=== PATIENT | female | born 1975 | race Caucasian/White ===

== ENCOUNTER 2016-07-09 17:24 | Inpatient (IN) | payer MEDICARE, MEDICAID ==
[~2016-07-09] VITALS: Ht 162.6 cm; Wt 49.7 kg
[~2016-07-09 17:24] MED LIST: ASCO250T13 PO; CHOL10006 PO; CYCL-181 PO; DIPH25CA39 PO; DOCU-94 PO; DOXE25CA2 PO; ENA10T PO; ESZO3TAB53 PO; FERR27TA2 PO; GABA300C PO; HYDR2TAB29 PO; INSUINJ37 SC; INSUINJ37 SUBCUT; LEVO25TA6 PO; LORA1TAB12 PO; MAGN400T7 PO; MULTTAB61 PO; MYCO250C4 PO; NALO1TAB PO; ONDA4TAB5 PO; OXY10CRT PO; OXYC-629 PO; PANT40TA2 PO; PRE1T PO; SENN8.6C PO; SPIR25TA89 PO; SULF-92 PO; SULF800T7 PO; TACR1CAP4 PO; TRAZ100T2 PO; [UNRECOGNIZED DRUG - CODE] PO
[2016-07-09 19:22] LABS: Basophils # (auto) 0 uL; DEFINITIVE VIEW TRANSMISSION; Eosinophils # (auto) 0 uL; Hematocrit 25.1 % (36.0-46.0); Hemoglobin 8.3 g/dL (12.2-16.2); Lymphocytes # (auto) 0.1 uL; Lymphocytes % (auto) 3.4 % (10.0-50.0); Mean Corpuscular Hemoglobin 28.5 pg (28.0-32.0); Mean Corpuscular Hgb Conc. 33.2 g/dL (32.0-36.0); Mean Corpuscular Volume 85.8 fL (80.0-100.0); Mean Platelet Volume 8.5 fL (7.4-10.4); Monocytes # (auto) 0.2 uL; Neutrophils # (auto) 3.7 uL; Neutrophils % (auto) 92.6 % (37.0-80.0); Platelet Count (auto) 91 10^3/uL (140-450); Red Cell Distribution Width 13.9 % (11.6-16.0)
[2016-07-09 19:47] LABS: Albumin 2.8 g/dL (3.4-5.0); BUN/Creatinine Ratio 22.4; Bilirubin, Total 1.2 mg/dL (0.2-1.0); Calcium 8.4 mg/dL (8.5-10.1); Potassium 5.4 mmol/L (3.5-5.1)
[2016-07-10] VITALS (7 sets, daily range): BP systolic 132–167; BP diastolic 78–90
[2016-07-10] MEDS ORDERED: FUROSEMIDE 40 MG/4 ML VIAL IV ONE
[2016-07-10] MEDS ORDERED: CEFOTAXIME SODIUM 2 GM in D5W 5% 100 ML IV ONE ×2
[2016-07-10] MEDS ORDERED: InsuLIN REG 1unit/0.01ml Soln (100units/ml) IV ONE (00:45)
[2016-07-10] MEDS ORDERED: SODIUM CHLORIDE 0.9% 500 ML IV ONE ×2 (00:45→02:15)
[2016-07-10] MEDS ORDERED: DEXTROSE (50%) 50ML SYRG IV PRN (01:45)
[2016-07-10] MEDS: ACCU-CHEK COMFORT CURVE STRIP VI SCH ×5 (03:45→20:33)
[2016-07-10] MEDS: InsuLIN REG 1unit/0.01ml Soln (100units/ml) SC SCH ×5 (03:52→20:36)
[2016-07-10] MEDS: ONDANSETRON HCL 4 MG/2 ML VIAL IV PRN ×2 (04:53→10:37)
[2016-07-10] MEDS ORDERED: PATIENTS OWN MEDICATION (meropenem 1 GM) IV SCH (06:00)
[2016-07-10] MEDS: LEVOTHYROXINE SODIUM 25 MCG TAB PO SCH (06:02)
[2016-07-10] MEDS: FERROUS SULFATE 325 MG TAB PO SCH ×2 (08:19→18:22)
[2016-07-10] MEDS: PANTOPRAZOLE SODIUM 40 MG/10 ML VIAL IV SCH (08:20)
[2016-07-10] MEDS: FUROSEMIDE 40 MG TAB PO SCH (08:20)
[2016-07-10] MEDS: oxyCODONE ER 10 MG TAB PO SCH ×2 (08:20→20:32)
[2016-07-10] MEDS: SPIRONOLACTONE 25 MG TAB PO SCH (08:20)
[2016-07-10] MEDS: predniSONE 5 MG TAB PO SCH (08:20)
[2016-07-10] MEDS: ENOXAPARIN SOD 30 MG/0.3 ML SYRINGE SC SCH (08:21)
[2016-07-10 08:34] LABS: INR 1.31 (0.9-1.15); Prothrombin Time 14.3 sec (9.37-12.3)
[2016-07-10] MEDS ORDERED: MEROPENEM IV SCH (10:00)
[2016-07-10] MEDS ORDERED: SODIUM CHLORIDE IV SCH (10:00)
[2016-07-10] MEDS: MYCOPHENOLATE 500 MG TAB PO SCH ×2 (10:32→20:32)
[2016-07-10] MEDS: TACROLIMUS 1 MG CAP PO SCH ×2 (10:32→20:33)
[2016-07-10] MEDS: MORPHINE SULF INJ 2 MG/ML SYRINGE 1ML IV PRN (10:37)
[2016-07-10] MEDS ORDERED: ESZO1TAB12 PO (12:43)
[2016-07-10] MEDS ORDERED: MEDR10TA9 (12:43)
[2016-07-10 16:41] LABS: Urine RBC None Seen /hpf (0 - 4)
[2016-07-10 17:04] LABS: Urine Bilirubin Negative (Negative); Urine Blood Negative /uL (Negative); Urine Color Yellow (Yellow); Urine Ketone TRACE (Negative); Urine Mucus FEW (None Seen); Urine Nitrite Negative (Negative); Urine Urobilinogen Normal (Negative)
[2016-07-10 17:05] LABS: Urine Glucose 1+ mg/dL (Normal)
[2016-07-10] MEDS: LACTULOSE 20Gm/30ML SOLN PO SCH (18:22)
[2016-07-11] MEDS: MORPHINE SULF INJ 2 MG/ML SYRINGE 1ML IV PRN ×5 (00:35→21:58)
[2016-07-11] MEDS: LACTULOSE 20Gm/30ML SOLN PO SCH ×4 (01:58→18:19)
[2016-07-11] MEDS: ACCU-CHEK COMFORT CURVE STRIP VI SCH ×6 (01:59→20:14)
[2016-07-11] MEDS: InsuLIN REG 1unit/0.01ml Soln (100units/ml) SC SCH ×6 (02:00→20:14)
[2016-07-11 04:48] VITALS: BP 146/74
[2016-07-11 06:07] LABS: Basophils # (auto) 0 uL; Basophils % (auto) 0.2 % (0.0-2.0); Eosinophils # (auto) 0 uL; Hematocrit 25.9 % (36.0-46.0); Hemoglobin 8.7 g/dL (12.2-16.2); Lymphocytes # (auto) 0.3 uL; Lymphocytes % (auto) 6.6 % (10.0-50.0); Mean Corpuscular Hemoglobin 28.5 pg (28.0-32.0); Mean Corpuscular Hgb Conc. 33.7 g/dL (32.0-36.0); Mean Corpuscular Volume 84.6 fL (80.0-100.0); Mean Platelet Volume 8.1 fL (7.4-10.4); Monocytes # (auto) 0.2 uL; Neutrophils # (auto) 3.5 uL; Neutrophils % (auto) 88.2 % (37.0-80.0); Platelet Count (auto) 124 10^3/uL (140-450); Red Cell Distribution Width 13.9 % (11.6-16.0)
[2016-07-11 06:24] LABS: Albumin 2.6 g/dL (3.4-5.0); BUN/Creatinine Ratio 25.2; Bilirubin, Total 0.8 mg/dL (0.2-1.0); Calcium 7.8 mg/dL (8.5-10.1); Potassium 3.7 mmol/L (3.5-5.1); Total Protein 5.7 g/dL (6.4-8.2)
[2016-07-11] MEDS: LEVOTHYROXINE SODIUM 25 MCG TAB PO SCH (06:35)
[2016-07-11 09:21] VITALS: BP 144/66
[2016-07-11] MEDS: FERROUS SULFATE 325 MG TAB PO SCH ×2 (09:25→18:19)
[2016-07-11] MEDS: PANTOPRAZOLE SODIUM 40 MG/10 ML VIAL IV SCH (11:07)
[2016-07-11] MEDS: MYCOPHENOLATE 500 MG TAB PO SCH ×2 (11:08→21:46)
[2016-07-11] MEDS: predniSONE 5 MG TAB PO SCH (11:08)
[2016-07-11] MEDS: oxyCODONE ER 10 MG TAB PO SCH ×2 (11:08→21:47)
[2016-07-11] MEDS: FUROSEMIDE 40 MG TAB PO SCH (11:08)
[2016-07-11] MEDS: TACROLIMUS 1 MG CAP PO SCH ×2 (11:08→21:48)
[2016-07-11] MEDS: SPIRONOLACTONE 25 MG TAB PO SCH (11:08)
[2016-07-11] MEDS: ENOXAPARIN SOD 30 MG/0.3 ML SYRINGE SC SCH (11:09)
[2016-07-11 14:41] VITALS: BP 162/85
[2016-07-11 17:10] VITALS: BP 141/83
[2016-07-11 20:00] VITALS: BP 149/89
[2016-07-11 21:52] VITALS: BP 149/89
[2016-07-12] VITALS (7 sets, daily range): BP systolic 137–150; BP diastolic 77–92
[2016-07-12] MEDS: LACTULOSE 20Gm/30ML SOLN PO SCH ×5 (00:37→23:36)
[2016-07-12] MEDS: ACCU-CHEK COMFORT CURVE STRIP VI SCH ×6 (00:38→21:20)
[2016-07-12] MEDS: InsuLIN REG 1unit/0.01ml Soln (100units/ml) SC SCH ×6 (00:38→21:20)
[2016-07-12] MEDS: MORPHINE SULF INJ 2 MG/ML SYRINGE 1ML IV PRN ×4 (02:34→22:41)
[2016-07-12] MEDS: LEVOTHYROXINE SODIUM 25 MCG TAB PO SCH (06:04)
[2016-07-12] MEDS: FERROUS SULFATE 325 MG TAB PO SCH ×2 (09:40→18:02)
[2016-07-12] MEDS: PANTOPRAZOLE SODIUM 40 MG/10 ML VIAL IV SCH (09:40)
[2016-07-12] MEDS: SPIRONOLACTONE 25 MG TAB PO SCH (09:40)
[2016-07-12] MEDS: FUROSEMIDE 40 MG TAB PO SCH (09:41)
[2016-07-12] MEDS: oxyCODONE ER 10 MG TAB PO SCH ×2 (09:41→21:19)
[2016-07-12] MEDS: predniSONE 5 MG TAB PO SCH (09:41)
[2016-07-12] MEDS: ENOXAPARIN SOD 30 MG/0.3 ML SYRINGE SC SCH (09:41)
[2016-07-12] MEDS: TACROLIMUS 1 MG CAP PO SCH ×2 (09:42→21:19)
[2016-07-12] MEDS: MYCOPHENOLATE 500 MG TAB PO SCH ×2 (09:42→21:19)
[2016-07-12] MEDS ORDERED: DEXTROSE (50%) 50ML SYRG IV PRN (10:15)
[2016-07-12 14:03] LABS: Albumin 3.2 g/dL (3.4-5.0); BUN/Creatinine Ratio 25.8; Bilirubin, Total 1.2 mg/dL (0.2-1.0); Calcium 8.4 mg/dL (8.5-10.1); Potassium 3.5 mmol/L (3.5-5.1); Total Protein 6.8 g/dL (6.4-8.2)
[2016-07-12] MEDS ORDERED: PATIENTS OWN MEDICATION PO SCH ×2 (22:00)
[2016-07-12] MEDS: LUNESTA 3MG TAB PO SCH (23:36)
[2016-07-13] MEDS: MORPHINE SULF INJ 2 MG/ML SYRINGE 1ML IV PRN ×4 (03:11→21:25)
[2016-07-13 05:00] VITALS: BP 134/81
[2016-07-13] MEDS: LACTULOSE 20Gm/30ML SOLN PO SCH ×4 (06:00→23:39)
[2016-07-13] MEDS: ACCU-CHEK COMFORT CURVE STRIP VI SCH ×4 (06:12→21:26)
[2016-07-13] MEDS: LEVOTHYROXINE SODIUM 25 MCG TAB PO SCH (06:13)
[2016-07-13] MEDS: InsuLIN REG 1unit/0.01ml Soln (100units/ml) SC SCH ×4 (06:13→21:27)
[2016-07-13 08:40] VITALS: BP 146/81
[2016-07-13 09:26] LABS: Basophils # (auto) 0 uL; DEFINITIVE VIEW TRANSMISSION; Eosinophils # (auto) 0 uL; Hematocrit 23.7 % (36.0-46.0); Hemoglobin 8.1 g/dL (12.2-16.2); Lymphocytes # (auto) 0.5 uL; Lymphocytes % (auto) 11.3 % (10.0-50.0); Mean Corpuscular Hgb Conc. 34.4 g/dL (32.0-36.0); Mean Corpuscular Volume 84.4 fL (80.0-100.0); Mean Platelet Volume 7.3 fL (7.4-10.4); Monocytes # (auto) 0.2 uL; Neutrophils # (auto) 3.4 uL; Neutrophils % (auto) 82.7 % (37.0-80.0); Platelet Count (auto) 100 10^3/uL (140-450); Red Cell Distribution Width 13.8 % (11.6-16.0); White Blood Cell 4.1 10^3/uL (4.4-10.8)
[2016-07-13] MEDS: SPIRONOLACTONE 25 MG TAB PO SCH (09:32)
[2016-07-13] MEDS: FUROSEMIDE 40 MG TAB PO SCH (09:34)
[2016-07-13] MEDS: PANTOPRAZOLE SODIUM 40 MG/10 ML VIAL IV SCH (09:34)
[2016-07-13] MEDS: FERROUS SULFATE 325 MG TAB PO SCH ×2 (09:34→17:14)
[2016-07-13] MEDS: predniSONE 5 MG TAB PO SCH (09:35)
[2016-07-13] MEDS: MYCOPHENOLATE 500 MG TAB PO SCH ×2 (09:36→21:26)
[2016-07-13] MEDS: oxyCODONE ER 10 MG TAB PO SCH ×2 (09:37→21:26)
[2016-07-13] MEDS: TACROLIMUS 1 MG CAP PO SCH ×2 (09:38→21:25)
[2016-07-13] MEDS: ENOXAPARIN SOD 30 MG/0.3 ML SYRINGE SC SCH (09:38)
[2016-07-13 09:48] LABS: Albumin 2.4 g/dL (3.4-5.0); BUN/Creatinine Ratio 26.1; Bilirubin, Total 0.7 mg/dL (0.2-1.0); Calcium 7.6 mg/dL (8.5-10.1); Potassium 3.2 mmol/L (3.5-5.1); Total Protein 5.1 g/dL (6.4-8.2)
[2016-07-13 13:38] VITALS: BP 144/79
[2016-07-13] MEDS ORDERED: MORPHINE SULF INJ 2 MG/ML SYRINGE 1ML IV ONE (15:45)
[2016-07-13] MEDS: Suplena 8 ounce PO SCH (18:00)
[2016-07-13 20:00] VITALS: BP 140/93
[2016-07-13] MEDS: LUNESTA 3MG TAB PO SCH (21:34)
[2016-07-13 22:28] VITALS: BP 140/93
[2016-07-14] MEDS: MORPHINE SULF INJ 2 MG/ML SYRINGE 1ML IV PRN ×2 (02:17→06:32)
[2016-07-14 05:19] VITALS: BP 142/87
[2016-07-14 05:49] LABS: Basophils # (auto) 0 uL; Eosinophils # (auto) 0 uL; Hematocrit 25.6 % (36.0-46.0); Hemoglobin 8.6 g/dL (12.2-16.2); Lymphocytes # (auto) 0.4 uL; Lymphocytes % (auto) 7.6 % (10.0-50.0); Mean Corpuscular Hemoglobin 28.2 pg (28.0-32.0); Mean Corpuscular Hgb Conc. 33.5 g/dL (32.0-36.0); Monocytes # (auto) 0.2 uL; Monocytes % (auto) 4.7 % (0.0-12.0); Neutrophils # (auto) 4.4 uL; Neutrophils % (auto) 87.7 % (37.0-80.0); Platelet Count (auto) 135 10^3/uL (140-450); Red Cell Distribution Width 13.8 % (11.6-16.0)
[2016-07-14] MEDS: LACTULOSE 20Gm/30ML SOLN PO SCH ×5 (06:00→23:48)
[2016-07-14 06:08] LABS: Albumin 2.8 g/dL (3.4-5.0); BUN/Creatinine Ratio 24.1; Bilirubin, Total 1.3 mg/dL (0.2-1.0); Calcium 7.8 mg/dL (8.5-10.1); Potassium 4.3 mmol/L (3.5-5.1); Total Protein 5.8 g/dL (6.4-8.2)
[2016-07-14] MEDS: LEVOTHYROXINE SODIUM 25 MCG TAB PO SCH (06:19)
[2016-07-14] MEDS: ACCU-CHEK COMFORT CURVE STRIP VI SCH ×4 (06:20→21:43)
[2016-07-14] MEDS: InsuLIN REG 1unit/0.01ml Soln (100units/ml) SC SCH ×3 (06:20→17:39)
[2016-07-14 06:42] LABS: Partial Thromboplastin Time 30.3 sec (22.64-33.71)
[2016-07-14 06:43] LABS: INR 1.29 (0.9-1.15); Prothrombin Time 14.1 sec (9.37-12.3)
[2016-07-14] MEDS: Suplena 8 ounce PO SCH ×2 (08:00→17:44)
[2016-07-14] MEDS: FERROUS SULFATE 325 MG TAB PO SCH ×2 (08:56→17:41)
[2016-07-14 09:00] VITALS: BP 149/89
[2016-07-14] MEDS: TACROLIMUS 1 MG CAP PO SCH ×2 (09:04→21:43)
[2016-07-14] MEDS: oxyCODONE ER 10 MG TAB PO SCH ×2 (09:04→21:46)
[2016-07-14] MEDS: SPIRONOLACTONE 25 MG TAB PO SCH (09:04)
[2016-07-14] MEDS: predniSONE 5 MG TAB PO SCH (09:04)
[2016-07-14] MEDS: MYCOPHENOLATE 500 MG TAB PO SCH ×2 (09:04→21:43)
[2016-07-14] MEDS: ENOXAPARIN SOD 30 MG/0.3 ML SYRINGE SC SCH (09:05)
[2016-07-14] MEDS: FUROSEMIDE 40 MG TAB PO SCH (09:05)
[2016-07-14] MEDS ORDERED: DEXTROSE (50%) 50ML SYRG IV PRN (09:30)
[2016-07-14] MEDS: PANTOPRAZOLE 40 MG TAB PO SCH (10:00)
[2016-07-14] MEDS ORDERED: medroxyPROGESTERone ACETATE 5 MG TAB PO ONE (12:45)
[2016-07-14 13:00] VITALS: BP 156/89
[2016-07-14 14:10] LABS: Vitamin D 25-Hydroxy 25 ng/mL (.); Vitamin D-2 25-Hydroxy <1.0 ng/mL (.)
[2016-07-14] MEDS: ONDANSETRON ODT 4 MG TAB PO PRN (15:08)
[2016-07-14] MEDS: OXYCODONE HCL 5MG TAB PO PRN ×2 (15:08→20:14)
[2016-07-14 20:00] VITALS: BP 145/83
[2016-07-14] MEDS: INSULIN DETEMIR(LEVEMIR) 1unit/0.01ml Soln (100units/ml) SC SCH (21:44)
[2016-07-14] MEDS: LUNESTA 3MG TAB PO SCH (21:46)
[2016-07-14] MEDS ORDERED: InsuLIN REG 1unit/0.01ml Soln (100units/ml) SC SCH (22:00)
[2016-07-14 22:12] VITALS: BP 145/83
[2016-07-15 05:07] VITALS: BP 149/78
[2016-07-15 06:09] LABS: Basophils # (auto) 0 uL; Basophils % (auto) 0.2 % (0.0-2.0); DEFINITIVE VIEW TRANSMISSION; Eosinophils # (auto) 0 uL; Eosinophils % (auto) 0.1 % (0.0-7.0); Hemoglobin 8.4 g/dL (12.2-16.2); Lymphocytes # (auto) 0.8 uL; Lymphocytes % (auto) 16.1 % (10.0-50.0); Mean Corpuscular Hemoglobin 28.2 pg (28.0-32.0); Mean Corpuscular Hgb Conc. 33.6 g/dL (32.0-36.0); Mean Corpuscular Volume 84.1 fL (80.0-100.0); Mean Platelet Volume 7.6 fL (7.4-10.4); Monocytes # (auto) 0.2 uL; Monocytes % (auto) 4.7 % (0.0-12.0); Neutrophils % (auto) 78.9 % (37.0-80.0); Platelet Count (auto) 130 10^3/uL (140-450); Red Cell Distribution Width 13.8 % (11.6-16.0); White Blood Cell 5.1 10^3/uL (4.4-10.8)
[2016-07-15] MEDS: InsuLIN REG 1unit/0.01ml Soln (100units/ml) SC SCH ×3 (06:15→18:00)
[2016-07-15] MEDS: INSULIN DETEMIR(LEVEMIR) 1unit/0.01ml Soln (100units/ml) SC SCH ×2 (06:16→22:42)
[2016-07-15] MEDS: ACCU-CHEK COMFORT CURVE STRIP VI SCH ×3 (06:17→18:35)
[2016-07-15] MEDS: LACTULOSE 20Gm/30ML SOLN PO SCH ×4 (06:24→23:15)
[2016-07-15] MEDS: LEVOTHYROXINE SODIUM 25 MCG TAB PO SCH (06:25)
[2016-07-15] MEDS: oxyCODONE ER 10 MG TAB PO SCH ×3 (06:25→21:55)
[2016-07-15 06:27] LABS: Albumin 2.3 g/dL (3.4-5.0); Calcium 7.7 mg/dL (8.5-10.1); Potassium 3.3 mmol/L (3.5-5.1)
[2016-07-15 06:30] LABS: BUN/Creatinine Ratio 25.3; Bilirubin, Total 0.8 mg/dL (0.2-1.0); Total Protein 5.2 g/dL (6.4-8.2)
[2016-07-15 08:00] VITALS: BP 142/83
[2016-07-15] MEDS: Suplena 8 ounce PO SCH ×2 (09:10→18:38)
[2016-07-15] MEDS: FERROUS SULFATE 325 MG TAB PO SCH ×2 (09:34→18:36)
[2016-07-15] MEDS: predniSONE 5 MG TAB PO SCH (09:35)
[2016-07-15] MEDS: SPIRONOLACTONE 25 MG TAB PO SCH (09:35)
[2016-07-15] MEDS: medroxyPROGESTERone ACETATE 5 MG TAB PO SCH (09:36)
[2016-07-15] MEDS: PANTOPRAZOLE 40 MG TAB PO SCH (09:37)
[2016-07-15] MEDS: FUROSEMIDE 40 MG TAB PO SCH (09:38)
[2016-07-15] MEDS: MYCOPHENOLATE 500 MG TAB PO SCH ×2 (09:39→21:56)
[2016-07-15] MEDS: TACROLIMUS 1 MG CAP PO SCH ×2 (09:39→21:56)
[2016-07-15] MEDS: ENOXAPARIN SOD 30 MG/0.3 ML SYRINGE SC SCH (09:40)
[2016-07-15] MEDS: OXYCODONE HCL 5MG TAB PO PRN ×3 (10:59→20:04)
[2016-07-15] MEDS: ONDANSETRON ODT 4 MG TAB PO PRN ×2 (11:00→23:08)
[2016-07-15 12:00] VITALS: BP 145/84
[2016-07-15] MEDS ORDERED: ALUM & MAG HYDROX-SIMETH LIQ(MAALOX) 30 ML PO ONE (12:45)
[2016-07-15 17:00] VITALS: BP 137/74
[2016-07-15 18:00] VITALS: BP 149/76
[2016-07-15] MEDS: LUNESTA 3MG TAB PO SCH (21:55)
[2016-07-16 04:50] VITALS: BP 131/74
[2016-07-16] MEDS: InsuLIN REG 1unit/0.01ml Soln (100units/ml) SC SCH ×6 (06:00→19:59)
[2016-07-16] MEDS: LACTULOSE 20Gm/30ML SOLN PO SCH ×3 (06:00→17:51)
[2016-07-16] MEDS: oxyCODONE ER 10 MG TAB PO SCH ×3 (06:09→21:41)
[2016-07-16] MEDS: ACCU-CHEK COMFORT CURVE STRIP VI SCH ×6 (06:09→19:59)
[2016-07-16] MEDS: LEVOTHYROXINE SODIUM 25 MCG TAB PO SCH (06:10)
[2016-07-16] MEDS: INSULIN DETEMIR(LEVEMIR) 1unit/0.01ml Soln (100units/ml) SC SCH ×2 (07:00→22:00)
[2016-07-16 08:00] VITALS: BP 121/83
[2016-07-16] MEDS ORDERED: DEXTROSE (50%) 50ML SYRG IV PRN (08:00)
[2016-07-16] MEDS: Suplena 8 ounce PO SCH ×2 (08:00→17:51)
[2016-07-16] MEDS ORDERED: DEXTROSE 10% 1,000 ML IV ONE (08:15)
[2016-07-16 08:30] VITALS: BP 121/83
[2016-07-16] MEDS: FERROUS SULFATE 325 MG TAB PO SCH ×2 (09:09→17:46)
[2016-07-16] MEDS: OXYCODONE HCL 5MG TAB PO PRN ×3 (09:09→18:51)
[2016-07-16] MEDS ORDERED: PROMETHAZINE HCL 25 MG/ML 1ML IV PRN (10:00)
[2016-07-16] MEDS ORDERED: ACCU-CHEK COMFORT CURVE STRIP VI SCH (10:00)
[2016-07-16] MEDS: medroxyPROGESTERone ACETATE 5 MG TAB PO SCH (10:10)
[2016-07-16] MEDS: predniSONE 5 MG TAB PO SCH (10:10)
[2016-07-16] MEDS: SPIRONOLACTONE 25 MG TAB PO SCH (10:11)
[2016-07-16] MEDS: FUROSEMIDE 40 MG TAB PO SCH (10:11)
[2016-07-16] MEDS: PANTOPRAZOLE 40 MG TAB PO SCH (10:11)
[2016-07-16] MEDS: ENOXAPARIN SOD 40 MG/0.4 ML SYRINGE SC SCH (10:12)
[2016-07-16 12:00] VITALS: BP 126/68
[2016-07-16] MEDS: MYCOPHENOLATE 500 MG TAB PO SCH ×2 (13:54→21:40)
[2016-07-16] MEDS: TACROLIMUS 1 MG CAP PO SCH ×2 (13:54→21:41)
[2016-07-16 17:30] VITALS: BP 119/70
[2016-07-16] MEDS: ONDANSETRON ODT 4 MG TAB PO PRN (17:46)
[2016-07-16] MEDS: LUNESTA 3MG TAB PO SCH (21:41)
[2016-07-16 22:00] VITALS: BP 137/85
[2016-07-17] MEDS: OXYCODONE HCL 5MG TAB PO PRN ×4 (00:07→20:46)
[2016-07-17] MEDS: ACCU-CHEK COMFORT CURVE STRIP VI SCH ×7 (04:06→23:55)
[2016-07-17] MEDS: InsuLIN REG 1unit/0.01ml Soln (100units/ml) SC SCH ×7 (04:06→23:55)
[2016-07-17] MEDS: LACTULOSE 20Gm/30ML SOLN PO SCH ×2 (05:57→18:10)
[2016-07-17] MEDS: oxyCODONE ER 10 MG TAB PO SCH ×3 (05:58→21:58)
[2016-07-17] MEDS: LEVOTHYROXINE SODIUM 25 MCG TAB PO SCH (05:59)
[2016-07-17 06:00] VITALS: BP 122/78
[2016-07-17] MEDS: INSULIN DETEMIR(LEVEMIR) 1unit/0.01ml Soln (100units/ml) SC SCH ×2 (06:47→22:07)
[2016-07-17 06:52] LABS: Potassium 3.3 mmol/L (3.5-5.1)
[2016-07-17 06:56] LABS: BUN/Creatinine Ratio 19.6; Calcium 7.5 mg/dL (8.5-10.1)
[2016-07-17 07:11] LABS: Basophils # (auto) 0 uL; Basophils % (auto) 0.3 % (0.0-2.0); Eosinophils # (auto) 0.1 uL; Eosinophils % (auto) 1.9 % (0.0-7.0); Hematocrit 27.1 % (36.0-46.0); Hemoglobin 9.2 g/dL (12.2-16.2); Lymphocytes # (auto) 0.6 uL; Lymphocytes % (auto) 11.9 % (10.0-50.0); Mean Corpuscular Hemoglobin 28.3 pg (28.0-32.0); Mean Corpuscular Volume 83.2 fL (80.0-100.0); Mean Platelet Volume 8.3 fL (7.4-10.4); Monocytes # (auto) 0.3 uL; Monocytes % (auto) 5.3 % (0.0-12.0); Neutrophils # (auto) 4.3 uL; Neutrophils % (auto) 80.6 % (37.0-80.0); Platelet Count (auto) 136 10^3/uL (140-450); Red Cell Distribution Width 14.5 % (11.6-16.0); White Blood Cell 5.3 10^3/uL (4.4-10.8)
[2016-07-17 08:00] VITALS: BP 118/77
[2016-07-17] MEDS: FERROUS SULFATE 325 MG TAB PO SCH ×2 (08:21→18:10)
[2016-07-17] MEDS: Suplena 8 ounce PO SCH ×2 (08:22→18:11)
[2016-07-17] MEDS: ONDANSETRON ODT 4 MG TAB PO PRN ×3 (08:36→22:39)
[2016-07-17] MEDS ORDERED: LACT10SO3 PO (10:04)
[2016-07-17] MEDS: medroxyPROGESTERone ACETATE 5 MG TAB PO SCH (11:30)
[2016-07-17] MEDS: SPIRONOLACTONE 25 MG TAB PO SCH (11:30)
[2016-07-17] MEDS: PANTOPRAZOLE 40 MG TAB PO SCH (11:30)
[2016-07-17] MEDS: FUROSEMIDE 40 MG TAB PO SCH (11:31)
[2016-07-17] MEDS: predniSONE 5 MG TAB PO SCH (11:31)
[2016-07-17] MEDS: ENOXAPARIN SOD 40 MG/0.4 ML SYRINGE SC SCH (11:32)
[2016-07-17] MEDS: MYCOPHENOLATE 500 MG TAB PO SCH ×2 (11:32→21:58)
[2016-07-17] MEDS: TACROLIMUS 1 MG CAP PO SCH ×2 (11:38→21:58)
[2016-07-17 13:00] VITALS: BP 126/72
[2016-07-17 13:33] VITALS: BP 126/72
[2016-07-17 17:00] VITALS: BP 128/68
[2016-07-17] MEDS: LUNESTA 3MG TAB PO SCH (21:59)
[2016-07-17 22:00] VITALS: BP 114/79
[2016-07-18] MEDS: OXYCODONE HCL 5MG TAB PO PRN ×3 (02:18→11:58)
[2016-07-18] MEDS: ONDANSETRON ODT 4 MG TAB PO PRN ×3 (03:01→11:59)
[2016-07-18] MEDS: InsuLIN REG 1unit/0.01ml Soln (100units/ml) SC SCH ×2 (04:13→08:00)
[2016-07-18] MEDS: ACCU-CHEK COMFORT CURVE STRIP VI SCH ×2 (04:13→08:16)
[2016-07-18 05:30] VITALS: BP 124/79
[2016-07-18] MEDS: LEVOTHYROXINE SODIUM 25 MCG TAB PO SCH (05:58)
[2016-07-18] MEDS: oxyCODONE ER 10 MG TAB PO SCH ×2 (05:58→14:00)
[2016-07-18] MEDS: LACTULOSE 20Gm/30ML SOLN PO SCH (05:59)
[2016-07-18] MEDS: INSULIN DETEMIR(LEVEMIR) 1unit/0.01ml Soln (100units/ml) SC SCH (06:05)
[2016-07-18] MEDS: Suplena 8 ounce PO SCH (08:00)
[2016-07-18] MEDS: FERROUS SULFATE 325 MG TAB PO SCH (08:00)
[2016-07-18 09:00] VITALS: BP 144/97
[2016-07-18] MEDS: ENOXAPARIN SOD 40 MG/0.4 ML SYRINGE SC SCH (10:00)
[2016-07-18] MEDS: predniSONE 5 MG TAB PO SCH (11:05)
[2016-07-18] MEDS: PANTOPRAZOLE 40 MG TAB PO SCH (11:05)
[2016-07-18] MEDS: medroxyPROGESTERone ACETATE 5 MG TAB PO SCH (11:06)
[2016-07-18] MEDS: FUROSEMIDE 40 MG TAB PO SCH (11:06)
[2016-07-18] MEDS: SPIRONOLACTONE 25 MG TAB PO SCH (11:06)
[2016-07-18] MEDS: MYCOPHENOLATE 500 MG TAB PO SCH (11:17)
[2016-07-18] MEDS: TACROLIMUS 1 MG CAP PO SCH (11:17)
== END 2016-07-18 13:35 | disposition home health service (06) | DRG 441 ==
LOC: ER 17:35 → OVERFLOW 17:36 → CENTRAL 07-10 04:38 → TELE-CENTR 07-10 07:15
PROVIDERS: ADMIT Internal Medicine; ATTEND Internal Medicine
PROC: 0W9G3ZX Drainage of Peritoneal Cavity, Percutaneous Approach, Diagnostic (ICD-10-PCS; principal; 2016-07-10)
DX: K72.90 Hepatic failure, unspecified without coma (principal); E13.10 Other specified diabetes mellitus with ketoacidosis without coma; E43 Unspecified severe protein-calorie malnutrition; G93.41 Metabolic encephalopathy; R18.8 Other ascites; N17.9 Acute kidney failure, unspecified; Z94.4 Liver transplant status; D68.9 Coagulation defect, unspecified; D61.818 Other pancytopenia; F11.20 Opioid dependence, uncomplicated; N18.4 Chronic kidney disease, stage 4 (severe); N13.30 Unspecified hydronephrosis; Z68.1 Body mass index [BMI] 19.9 or less, adult; K74.60 Unspecified cirrhosis of liver; D63.8 Anemia in other chronic diseases classified elsewhere; G89.4 Chronic pain syndrome; Z96.643 Presence of artificial hip joint, bilateral; K37 Unspecified appendicitis; I12.9 Hypertensive chronic kidney disease with stage 1 through stage 4 chronic kidney disease, or unspecified chronic kidney disease; E87.5 Hyperkalemia; E87.6 Hypokalemia; E03.9 Hypothyroidism, unspecified; N32.0 Bladder-neck obstruction; Z88.6 Allergy status to analgesic agent; Z88.1 Allergy status to other antibiotic agents; Z88.8 Allergy status to other drugs, medicaments and biological substances; Z79.4 Long term (current) use of insulin; Z79.899 Other long term (current) drug therapy; K59.00 Constipation, unspecified; M06.9 Rheumatoid arthritis, unspecified; M32.9 Systemic lupus erythematosus, unspecified; Z82.3 Family history of stroke; Z83.3 Family history of diabetes mellitus; Z80.9 Family history of malignant neoplasm, unspecified; E11.22 Type 2 diabetes mellitus with diabetic chronic kidney disease
CPT/HCPCS: 10022; 36415; 74176; 76705; 76775; 76942; 80048; 80053; 80197; 81001; 82010; 82140; 82306; 82570; 82962; 83036; 83970; 84100; 84132; 84156; 84300; 85025; 85610; 85730; 93005; 94761; 96361; 96374; 97116; 97163; 97530; C9113; J1815; J2185; J2405; J7507; J7517; Q0162